=== PATIENT | female | born 1935 | race Caucasian/White ===

== ENCOUNTER 2019-04-06 10:59 | Emergency (ER) | payer MEDICARE ==
[2019-04-06 13:04] VITALS: BP 189/87
--- NOTE | 2019-04-07 05:51 | ED ---
Skin Complaint - HPI Summary HPI Summary: Patient is a 83yo M with a hx of varicose veins presents to the ED with the concern for a left lower extremity erythematous palpable area which began approximately 2 days ago. She denies any pain to the calf. Denies any pain behind the knee. Denies any pain to the knee or to the ankle. She states she has had these in the past, however her doctor wanted her to come in to get this checked out today as they were concerned over a DVT. No history of DVT. No history of PE. Denies any SOB. Denies any travel or smoking history. - History of Current Complaint Chief Complaint: EDExtremityLower Time Seen by Provider: 04/06/19 11:11 Stated Complaint: LT LEG LUMP/SWELLING Hx Obtained From: Patient Onset/Duration: Started Hours Ago Skin Exposure Onset/Duration: Hours Ago Timing: Constant Onset Severity: Mild Current Severity: None Pain Intensity: 0 Pain Scale Used: 0-10 Numeric Skin Location: Discrete Aggravating Symptom(s): Nothing Alleviating Symptom(s): Nothing Associated Signs & Symptoms: Negative - Allergy/Home Medications Allergies/Adverse Reactions: Allergies Allergy/AdvReac Type Severity Reaction Status Date / Time codeine Allergy Nausea And Verified 04/06/19 11:14 Vomiting Home Medications: Home Medications Potassium Chloride 10 meq PO DAILY 04/06/19 [History Confirmed 04/06/19] PMH/Surg Hx/FS Hx/Imm Hx Previously Healthy: Yes Cardiovascular History: Reports: Hx Hypertension - Cancer History Hx Chemotherapy: No Hx Radiation Therapy: No - Immunization History Hx Pertussis Vaccination: No Immunizations Up to Date: Yes Infectious Disease History: No Infectious Disease History: Denies: Traveled Outside the [place] in Last 30 Days - Family History Family History: mother - BCA - Social History Occupation: Unemployed Lives: With Family Alcohol Use: Daily Alcohol Amount: 1 glass of wine daily Hx Substance Use: No Substance Use Type: Reports: None Hx Tobacco Use: Yes Smoking Status (MU): Former Smoker Review of Systems Constitutional: Negative Negative: Fever, Chills, Fatigue, Skin Diaphoresis Negative: Palpitations, Chest Pain Negative: Shortness Of Breath Genitourinary: Negative Positive: no symptoms reported, see HPI Positive: Other - 2cm diameter palpable erythematous area to the medial/mid-calf Neurological: Negative All Other Systems Reviewed And Are Negative: Yes Physical Exam Triage Information Reviewed: Yes Vital Signs On Initial Exam: Initial Vitals Temp Pulse Resp BP Pulse Ox 97.5 F 82 16 190/97 97 04/06/19 11:08 04/06/19 11:08 04/06/19 11:08 04/06/19 11:08 04/06/19 11:08 Vital Signs Reviewed: Yes Appearance: Positive: Well-Appearing, Well-Nourished Skin: Positive: Skin Color Reflects Adequate Perfusion, Other - 2cm diameter palpable erythematous area to the medial/mid-calf Head/Face: Positive: Normal Head/Face Inspection Neck: Positive: Supple, No Lymphadenopathy Respiratory/Lung Sounds: Positive: Clear to Auscultation, Breath Sounds Present Cardiovascular: Positive: RRR Neurological: Positive: Speech Normal Psychiatric: Positive: Affect/Mood Appropriate Diagnostics - Vital Signs Vital Signs Temp Pulse Resp BP Pulse Ox 04/06/19 13:00 97.7 F 66 19 189/87 96 04/06/19 11:08 97.5 F 82 16 190/97 97 - Laboratory Lab Statement: Any lab studies that have been ordered have been reviewed, and results considered in the medical decision making process. Course/Dx - Course Course Of Treatment: On physical exam, the left medial to mid calf there is a small 2cm slightly palpable erythematous area. Varicosities throughout the bilateral lower ext. No swelling noted. Pulses +2 intact. Pt denies decreased sensation, numbness, tingling to the extremity. This resembles a SVT. Patient states she has had these in the past and denies any pain to the calf. Worse with ambulation x 2 days, but states that has improved. Continues to endorse pain only with deep palpation, but otherwise denies symptoms. Discussed with patient this appears to be a SVT. The area is slighly palpable and erythematous with no evidence of DVT or pain to the calf. Encouraged compression hose, nsaids, ice and heat and given return precautions [facility] such as infection. Patient understands. - Diagnoses Provider Diagnoses: Superficial thrombophlebitis Discharge - Sign-Out/Discharge Documenting (check all that apply): Patient Departure Patient Received Moderate/Deep Sedation with Procedure: No - Discharge Plan Condition: Stable Disposition: HOME Patient Education Materials: Superficial Thrombophlebitis (ED) Referrals: Estefania Rodríguez MD [Primary Care Provider] - Additional Instructions: Ibuprofen 600mg three times daily Ice to the area for comfort - Billing Disposition and Condition Condition: STABLE Disposition: Home
== END 2019-04-06 13:00 | disposition home or self-care (01) ==
LOC: ED 10:59
DX: I80.02 Phlebitis and thrombophlebitis of superficial vessels of left lower extremity (principal); I10 Essential (primary) hypertension; Z87.891 Personal history of nicotine dependence
CPT/HCPCS: 99282